=== PATIENT | male | born 1960 | race Caucasian/White ===

== ENCOUNTER 2016-08-26 13:54 | Emergency (ER) | payer MEDICAID ==
[~2016-08-26] VITALS: Ht 162.6 cm; Wt 79.8 kg
[2016-08-26 15:49] LABS: BASOPHIL % 0.3 % (0-2); PLATELET COUNT 223 x10^3mcL (130-400); RED CELL DISTRIBUTION WIDTH 12.6 % (11.5-14.5)
[2016-08-26 15:53] LABS: CALCIUM 8.8 mg/dL (8.5-10.1); CARBON DIOXIDE 27.3 mmol/L (21-32); CHLORIDE SERUM 99 mmol/L (98-107); CREATININE SERUM 0.7 mg/dL (0.7-1.3); GFR1 > 60 mL/min; GLUCOSE SERUM 283 mg/dL (74-106); POTASSIUM SERUM 3.7 mmol/L (3.5-5.1); SODIUM SERUM 135 mmol/L (136-145)
[2016-08-26 15:57] LABS: ALBUMIN 3.6 g/dL (3.4-5.0); ALKALINE PHOSPHATASE 140 U/L (46-116); ALT/SGPT 35 U/L (16-63); AST/SGOT 34 U/L (15-37); BILIRUBIN TOTAL 2.46 mg/dL (0.20-1.00); CHOLESTEROL 140 mg/dL (<200); HDL CHOLESTEROL 51 mg/dL (40-60); MAGNESIUM 1.6 mg/dL (1.8-2.4); TOTAL PROTEIN, SERUM 6.9 g/dL (6.4-8.2)
[2016-08-26 18:15] VITALS: BP 139/84
== END 2016-08-26 18:15 | disposition home or self-care (01) ==
LOC: ED 13:54
PROVIDERS: Emergency Medicine
DX: E11.65 Type 2 diabetes mellitus with hyperglycemia (principal); M25.511 Pain in right shoulder; E78.00 Pure hypercholesterolemia, unspecified
CPT/HCPCS: 83880; J2405; J8597; Q0092

== ENCOUNTER 2016-08-29 04:39 | Emergency (ER) | payer MEDICAID ==
[2016-08-29 06:35] VITALS: BP 155/87
== END 2016-08-29 06:35 | disposition home or self-care (01) ==
LOC: ED 04:39
DX: B02.9 Zoster without complications (principal); E78.00 Pure hypercholesterolemia, unspecified
CPT/HCPCS: J1170; J1885; Q0162

== ENCOUNTER 2018-04-21 00:05 | Emergency (ER) | payer MEDICAID ==
[~2018-04-21] VITALS: Ht 172.7 cm; Wt 78.9 kg
[2018-04-21 00:13] VITALS: Ht 172.7 cm; Wt 78.9 kg
[2018-04-21 02:30] VITALS: BP 140/68
== END 2018-04-21 02:30 | disposition home or self-care (01) ==
LOC: ED 00:05
DX: S39.012A Strain of muscle, fascia and tendon of lower back, initial encounter (principal); E11.9 Type 2 diabetes mellitus without complications; E78.00 Pure hypercholesterolemia, unspecified; X58.XXXA Exposure to other specified factors, initial encounter; Y93.89 Activity, other specified; Y92.89 Other specified places as the place of occurrence of the external cause; Y99.8 Other external cause status
CPT/HCPCS: 82962; J1885